=== PATIENT | male | born 1960 | race Caucasian/White ===

== ENCOUNTER 2017-12-11 06:41 | Day surgery (SDC) | payer BC ==
[2017-12-08 13:16] VITALS: BMI 27.1
[~2017-12-11 06:41] MED LIST: GELATIN SPONGE,ABSORBABLE 1 GM PACKET TP ONE; THROMBIN (BOVINE) 5,000 UNIT VIAL TP ONE
[2017-12-11] MEDS ORDERED: oxyCODONE HCL 10 MG SUSTAINED ACTING TABLET PO ONE (07:51)
[2017-12-11] MEDS ORDERED: MIDAZOLAM HCL 2 MG/2 ML SINGLE DOSE VIAL ONE (09:45)
[2017-12-11] MEDS ORDERED: DEXAMETHASONE SOD PHOSPHATE/PF 10 MG/ML SDV ONE (09:45)
[2017-12-11] MEDS ORDERED: BUPIVACAINE HCL/PF (5 MG/ML) 30 ML VIAL IJ ONE (09:46)
[2017-12-11] MEDS ORDERED: THROMBIN (BOVINE) 5,000 UNIT VIAL TP ONE ×2 (10:11→11:35)
[2017-12-11] MEDS ORDERED: LIDOCAINE 1%/EPI 1:100000 (20 ML MULTI DOSE VIAL) ONE (10:11)
[2017-12-11] MEDS ORDERED: methylPREDNISolone ACET (DEPO) 40 MG/1 ML VIAL ONE (10:11)
[2017-12-11] MEDS ORDERED: GUM MASTIC/STORAX/MSAL/ALCOHOL 1 DRP DROPSBTL MC ONE (10:12)
--- NOTE | 2017-12-11 10:12 | HP ---
History & Physical Update - History History: No Change - Physical Physical: No Change - Assessment Assessment: No Change - Plan Plan: No Change (H&P in chart dated 11/29/2017)
--- NOTE | 2017-12-11 10:13 | OP ---
Operative Note - Note: Operative Date: 12/11/17 Pre-Operative Diagnosis: herniated disc Operation: laminectomy of L1-L2, microdiscetomy Surgeon: Jack Reyez Respiratory Care Program Director: Michaela Kessler Anesthesiologist/PHLEBOTOMY DIRECTOR: Joel Reyes Anesthesia: Spinal Estimated Blood Loss (mls): 20 Fluid Volume Replaced (mls): 1,000 Operative Report Dictated: Yes
[2017-12-11] MEDS ORDERED: BUPIVACAINE HCL/PF 0.5% (5MG/ML) 10 ML VIAL ONE (10:29)
[2017-12-11] MEDS ORDERED: LIDOCAINE 1%/EPI 1:100000 (50 ML MULTI DOSE VIAL) INF ONE (11:00)
[2017-12-11] MEDS ORDERED: DEXAMETHASONE SOD PHOSPHATE 4 MG/1 ML VIAL ONE (11:18)
[2017-12-11] MEDS ORDERED: ONDANSETRON 4 MG/2 ML VIAL ONE (11:18)
[2017-12-11] MEDS ORDERED: GELATIN SPONGE,ABSORBABLE 1 GM PACKET TP ONE (11:36)
[2017-12-11] MEDS ORDERED: methylPREDNISolone ACET (DEPO) 40 MG/1 ML VIAL IM ONE (12:11)
--- NOTE | 2017-12-11 12:49 | SURG ---
Surgery Production Control Scheduler Note Production Control Scheduler: Michaela Kessler PA-C Date of Service: 12/11/17 Diagnosis: Disc herniation L1-L2 Procedure: Lmainectomy of L1-L2 with microdiscetomy I was present for the entirety of the operative procedure. For further detail, please refer to operative report. Visit type - Case Type Case Type: Scheduled - Emergency Emergency Visit: No - New patient This patient is new to me today: Yes Date on this admission: 12/11/17
[2017-12-11] MEDS ORDERED: oxyCODONE HCL 5 MG TABLET PO PRN (15:12)
[2017-12-11] MEDS ORDERED: ONDANSETRON 4 MG/2 ML VIAL IVPUSH PRN (15:12)
[2017-12-11] MEDS ORDERED: LACTATED RINGERS SOLUTION 1,000 ML IV SCH (15:15)
[2017-12-11 15:29] VITALS: BP 110/74
[2017-12-11 16:42] VITALS: PULSE 78; TEMP 97.9
[2017-12-11] MEDS ORDERED: oxyCODONE HCL 5 MG TABLET ONE (17:33)
--- NOTE | 2017-12-11 19:18 | OP ---
DATE OF OPERATION: 12/11/2017 PREOPERATIVE DIAGNOSIS: Spinal stenosis, L1-2. POSTOPERATIVE DIAGNOSIS: Spinal stenosis, L1-2. PROCEDURE PERFORMED: Laminectomy, L1-2. SURGEON: Jack Reyez MD INSOLE BEVELER: BABS Jackson ESTIMATED BLOOD LOSS: 50 mL INTRAVENOUS FLUIDS: Per Anesthesia. ANESTHESIA: Spinal/TLIP. COMPLICATIONS: None. DISPOSITION: Patient brought to the PACU in stable condition. INDICATIONS FOR SURGERY: The patient is a 57-year-old gentleman who has been suffering from pain from his back down his leg. X-rays and MRI were completed which noted that he had a herniated disk at L1-2. He had gone through an exhaustive course of treatment for this, which included medications, physical therapy as well as injections. Unfortunately, his pain continued to persist despite all this. At this point, risks, benefits, and alternatives were discussed, and the patient consented to surgery. DESCRIPTION OF PROCEDURE: Patient was brought to the operating room by the anesthesia staff. After appropriate patient identification was performed, spinal anesthesia was given along with a TLIP block. Patient was able to position himself prone onto the OR table with all areas of bony prominences well padded at this time. Two needles were placed into his back to anna marie off the L1-2 segment. X-ray was taken to confirm this as correct. [place] were removed, and 10 mL of lidocaine with epinephrine were injected in his back at this time. His back was prepped and draped in a sterile manner. At this point, a timeout was completed. An incision was made from the top of L1 down to the bottom of L2. Dissection was carried down to the fascia. Fascia was split open at this time. Appropriate retractors were then placed in. A spinal needle was placed onto the L1 lamina to anna marie off the L1-2 level. An x-ray was taken to confirm this as correct. The needle was removed, and the interspinous ligament at L1-2 was removed. Portions of the L1 and L2 spinal processes were removed. Microscope was brought in, and portions of the L1 lamina and L2 lamina were removed. The flavum was identified and was removed. Thecal sac was mobilized medially. Disk herniation was noted and removed at this time. A complete decompression was performed such that by the end of the procedure the L2 nerve root appeared to be well decompressed. All bleeding was well controlled at this time. Steroid was placed over the nerve root. FloSeal was placed over that. The fascia was closed with a No. 1 Vicryl suture. Subcutaneous tissues were closed with 2-0 Vicryl suture. Skin was closed with 3-0 Monocryl suture. Dermabond was applied. Steri-Strips were applied. A sterile dressing was applied. Patient was placed supine on the OR bed and brought to the PACU in stable condition. Dimitrios [id number]
--- NOTE | 2017-12-12 16:48 | PATH ---
Surgical Pathology Report Patient Name: [facility]. Rec. #: [id number] /Age/Gender: 1960 (Age: 57) / M Account: [id number] Location: [facility] Taken: 12/11/2017 Received: 12/11/2017 Reported: 12/12/2017 Physicians: Jack Reyez M.D. Specimen(s) Received L1-L2 DISC Clinical History Spinal stenosis Final Diagnosis DISC, L1-L2, LAMINECTOMY: INTERVERTEBRAL DISC TISSUE WITH FOCAL AREAS OF HEMORRHAGE. Electronically Signed Rehana Alamo M.D. Gross Description Received in formalin labeled "L1-L2 disc" are multiple irregular fibrocartilaginous tissue measuring 2 x 2 x 0.3 cm in aggregate. The specimen is entirely submitted in one cassette. PRABHA/12/11/2017 dave/12/11/2017
== END 2017-12-11 18:07 | disposition home or self-care (01) ==
LOC: FASU 06:41
PROVIDERS: ATTEND Orthopaedic Surgery Orthopaedic Surgery of the Spine
PROC: 01NB0ZZ Release Lumbar Nerve, Open Approach (ICD-10-PCS; principal; 2017-12-11 10:28)
DX: M48.061 Spinal stenosis, lumbar region without neurogenic claudication (principal)
CPT/HCPCS: 72100-TC-FY; 88304-TC; 94760